=== PATIENT | male | born 1970 ===

== ENCOUNTER 2017-01-22 09:50 | Emergency (ER) | payer MEDICAID ==
[2017-01-22 10:13] VITALS: BP 165/101; RESP 16; TEMP 97; O2SAT 98
[2017-01-22 10:24] VITALS: PULSE 88
--- NOTE | 2017-01-22 10:25 | ED PDOC ---
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 There everything checked out ok, but he had high blood pressure. He left and never followed up with anyone for it. Here now as he wants a letter for clearance and bp management. Has no chest pain, dyspnea, weakness, numbness, tingles, headaches, or any symptoms. No vision changes. Has no doctor. Monitoring pressure at home and is at 150s systolic or 100 lower number. Past Medical History Reviewed: Nursing Documentation, Vital Signs Vital Signs: Last Vital Signs Temp 97.0 F L 01/22/17 10:10 Pulse 94 H 01/22/17 10:10 Resp 16 01/22/17 10:10 BP 165/101 H 01/22/17 10:10 Pulse Ox 98 01/22/17 10:10 - Medical History PMH: HTN - Surgical History Surgical History: No Surg Hx - Family History Family History: States: Unknown Family Hx - Social History Alcohol: None Drugs: Denies - Immunization History Hx Tetanus Toxoid Vaccination: No Hx Influenza Vaccination: No Hx Pneumococcal Vaccination: No - Allergies Allergies/Adverse Reactions: Allergies Allergy/AdvReac Type Severity Reaction Status Date / Time No Known Allergies Allergy Verified 10/19/15 10:08 Review of Systems ROS Statement: Except As Marked, All Systems Reviewed And Found Negative Physical Exam - Reviewed Nursing Documentation Reviewed: Yes Vital Signs Reviewed: Yes - Physical Exam Appears: Positive for: Well, Non-toxic, No Acute Distress Head Exam: Positive for: ATRAUMATIC, NORMAL INSPECTION, NORMOCEPHALIC Skin: Positive for: Normal Color, Warm, DRY Eye Exam: Positive for: EOMI, Normal appearance, PERRL ENT: Positive for: Normal ENT Inspection Neck: Positive for: Normal, Painless ROM Cardiovascular/Chest: Positive for: Regular Rate, Rhythm. Negative for: Edema Respiratory: Positive for: CNT, Normal Breath Sounds Gastrointestinal/Abdominal: Positive for: Normal Exam, Bowel Sounds, Soft. Negative for: Tenderness Back: Positive for: Normal Inspection. Negative for: L CVA Tenderness, R CVA Tenderness Extremity: Positive for: Normal ROM. 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 Negative for: Motor/Sensory Deficits - ECG O2 Sat by Pulse Oximetry: 98 Pulse Ox Interpretation: Normal - Progress ED Course And Treament: Spoke with [facility] resident, Ana Maria. She will follow up with pt. and help with appointment for tomorrow. Pt. aware. Unclear how long his bp has been up. Not taking care of himself for 2 years. Pt. to follow up and call clinic [phone] and get appointment. He can also go as walk-in. Has no symptoms. Will not tx bp at this time as pt. is asymptomatic and possibly chronically at this bp. AAOx3. Ambulated with no issues. Disposition - Clinical Impression Clinical Impression: Hypertension - Patient ED Disposition Is Patient to be Admitted: No Counseled Patient/Family Regarding: Diagnosis, Need For Followup - Disposition Referrals: [facility] [Outside] - 01/23/17 Disposition: Routine/Home Disposition Time: 10:30 Condition: STABLE Additional Instructions: Call the clinic tomorrow [phone] and make an appointment for the same day. They have walk-in and same day appointments available. Make sure to get seen tomorrow. Return if not better in 3 days. Instructions: Hypertension (ED)
== END 2017-01-22 10:52 | disposition home or self-care (01) ==
LOC: H.ER 09:50
DX: I10 Essential (primary) hypertension (principal)

== ENCOUNTER 2017-02-02 11:17 | Emergency (ER) | payer MEDICAID ==
[2017-02-02 11:32] VITALS: TEMP 98.4; O2SAT 97
--- NOTE | 2017-02-02 11:51 | ED PDOC ---
HPI: Hypertension/Hypotension Chief Complaint (Nursing): High Blood Pressure Past Medical History Vital Signs: Last Vital Signs Temp 98.4 F 02/02/17 11:31 Pulse 83 02/02/17 11:31 Resp 20 02/02/17 11:31 BP 164/102 H 02/02/17 11:31 Pulse Ox 97 02/02/17 11:31 - Medical History PMH: HTN - Family History Family History: States: Unknown Family Hx - Immunization History Hx Tetanus Toxoid Vaccination: No Hx Influenza Vaccination: No Hx Pneumococcal Vaccination: No - Allergies Allergies/Adverse Reactions: Allergies Allergy/AdvReac Type Severity Reaction Status Date / Time No Known Allergies Allergy Verified 10/19/15 10:08 - ECG O2 Sat by Pulse Oximetry: 97
[2017-02-02 11:59] VITALS: PULSE 88
--- NOTE | 2017-02-02 12:09 | ED PDOC ---
HPI: General Adult Time Seen by Provider: 02/02/17 12:02 Chief Complaint (Nursing): High Blood Pressure Chief Complaint (Provider): sent by clinic, elevate BP History Per: Patient Additional Complaint(s): Patient was just seen at [facility] and was sent to ED for evaluation of elevated blood pressure. Patient states he has had elevated blood pressure for the past month but is not currently taking any medications. He does not have a primary doctor. He denies any chest pain, shortness of breath , dizziness, headache, vision changes upon arrival. Patient offers no acute medical complaints but states that he is under a great deal of stress. He denies suicidal or homicidal ideation. Past Medical History Reviewed: Historical Data, Nursing Documentation, Vital Signs Vital Signs: Last Vital Signs Temp 98.4 F 02/02/17 11:31 Pulse 88 02/02/17 14:09 Resp 18 02/02/17 14:09 BP 141/87 02/02/17 14:09 Pulse Ox 97 02/02/17 14:25 - Medical History PMH: HTN (not on meds) - Surgical History Other surgeries: Left ankle surgery - Family History Family History: States: No Known Family Hx - Living Arrangements Living Arrangements: With Family - Social History Current smoker - smoking cessation education provided: Yes (1 pack per week) Alcohol: None Drugs: Denies - Home Medications Home Medications: Ambulatory Orders Medication Instructions Recorded Hydrochlorothiazide [Microzide] 12.5 mg PO DAILY #30 cap 02/02/17 - Allergies Allergies/Adverse Reactions: Allergies Allergy/AdvReac Type Severity Reaction Status Date / Time No Known Allergies Allergy Verified 10/19/15 10:08 Review of Systems ROS Statement: Except As Marked, All Systems Reviewed And Found Negative Constitutional: Negative for: Fever Eyes: Negative for: Vision Change Cardiovascular: Negative for: Chest Pain Respiratory: Negative for: Cough Gastrointestinal: Negative for: Nausea, Vomiting Neurological: Negative for: Headache, Dizziness Physical Exam - Reviewed Nursing Documentation Reviewed: Yes Vital Signs Reviewed: Yes - Physical Exam Appears: Positive for: Well Head Exam: Positive for: ATRAUMATIC, NORMAL INSPECTION Skin: Negative for: Rash Eye Exam: Positive for: Normal appearance, EOMI, PERRL Cardiovascular/Chest: Positive for: Regular Rate, Rhythm Respiratory: Positive for: Normal Breath Sounds Extremity: Negative for: Pedal Edema Neurologic/Psych: Positive for: Alert, Oriented - Laboratory Results Result Diagrams: 02/02/17 12:45 02/02/17 12:45 - ECG Interpretation Of ECG: NSR 75 bpm, no acute finding, reviewed by PA and ED attending O2 Sat by Pulse Oximetry: 97 Pulse Ox Interpretation: Normal Medical Decision Making Medical Decision Makin46 year old male with hypertension. Plan: EKG CXR CBC CMP Trop Lipid Panel HA1C UA Dr. Galarza, family practice resident came to bedside to see patient in ED. Labs were ordered as per Dr. Donnelly. Patient will be discharged with prescription for hydrochlorothiazide 12.5 mg tablet daily and has follow-up next week in clinic with Dr. Galarza. Disposition - Clinical Impression Clinical Impression: Hypertension - Patient ED Disposition Is Patient to be Admitted: No Counseled Patient/Family Regarding: Studies Performed, Diagnosis, Need For Followup, Rx Given - Disposition Referrals: [facility] [Outside] Disposition: Routine/Home Disposition Time: 13:55 Condition: STABLE Additional Instructions: Take prescription medications as directed. Follow up next week as scheduled in clinic. Prescriptions: Hydrochlorothiazide [Microzide] 12.5 mg PO DAILY #30 cap Instructions: Hypertension (ED) Results - Lab Results Lab Results: 02/02/17 02/02/17 02/02/17 12:45 12:45 12:45 WBC 4.9 RBC 5.12 Hgb 16.0 Hct 47.4 MCV 92.6 MCH 31.4 H MCHC 33.9 RDW 13.2 Plt Count 205 MPV 8.2 Neut % (Auto) 53.2 Lymph % (Auto) 32.6 [place] % (Auto) 11.9 H Eos % (Auto) 1.6 Baso % (Auto) 0.7 Neut # 2.6 Lymph # 1.6 [place] # 0.6 Eos # 0.1 Baso # 0.0 Sodium 141 Potassium 4.1 Chloride 104 Carbon Dioxide 26 Anion Gap 15 BUN 16 Creatinine 1.2 Est GFR ( Amer) > 60 Est GFR (Non-Af Amer) > 60 Random Glucose 102 Calcium 9.3 Total Bilirubin 0.5 AST 32 ALT 40 Alkaline Phosphatase 69 Troponin I < 0.0120 Total Protein 7.5 Albumin 4.3 Globulin 3.2 Albumin/Globulin Ratio 1.3 Triglycerides 282 H Cholesterol 161 LDL Cholesterol Direct 78 HDL Cholesterol 47 Urine Color Yellow Urine Clarity Clear Urine pH 6.0 Ur Specific [place] 1.016 Urine Protein Negative Urine Glucose (UA) Neg Urine Ketones Negative Urine Blood Negative Urine Nitrate Negative Urine Bilirubin Negative Urine Urobilinogen 0.2-1.0 Ur Leukocyte Esterase Neg Urine RBC (Auto) 4 H Urine Microscopic WBC < 1 Ur Squamous Epith Cells < 1 Urine Bacteria Rare
[2017-02-02] MEDS ORDERED: Sodium Chloride 0.9% 1,000 ML IV STA (12:16)
[2017-02-02 13:12] LABS: BASO % 0.7 % (0.0-2.0); EOS # 0.1 K/uL (0.0-0.7); EOS % 1.6 % (0.0-4.0); HEMATOCRIT 47.4 % (35.0-51.0); LYMPH # 1.6 K/uL (1.0-4.3); LYMPH % 32.6 % (20.0-40.0); MEAN CELL VOLUME 92.6 fl (80.0-94.0); MEAN CORPUSCULAR HEMOGLOBIN 31.4 pg (27.0-31.0); MEAN CORPUSCULAR HGB CONC 33.9 g/dL (33.0-37.0); MEAN PLATELET VOLUME 8.2 fl (7.2-11.7); MONO # 0.6 K/uL (0.0-0.8); MONO % 11.9 % (0.0-10.0); NEUT # 2.6 K/uL (1.8-7.0); NEUT % 53.2 % (50.0-75.0); NRBC % 0.4 % (0.0-0.0); RED CELL DISTRIBUTION WIDTH 13.2 % (11.5-14.5); WHITE BLOOD COUNT 4.9 K/uL (4.8-10.8)
[2017-02-02 13:23] LABS: RBC URINE 4 /hpf (0-3); URINE BACTERIA RARE (<OCC); URINE BILIRUBIN NEGATIVE (NEGATIVE); URINE BLOOD NEGATIVE (NEGATIVE); URINE COLOR YELLOW (YELLOW); URINE GLUCOSE (UA) NEG (Normal); URINE KETONE NEGATIVE (NEGATIVE); URINE LEUKOCYTE ESTERASE NEG Leu/uL (Negative); URINE PROTEIN NEGATIVE (NEGATIVE); URINE UROBILINOGEN 0.2-1.0 mg/dL (0.2-1.0); WBC URINE < 1 /hpf (0-5)
[2017-02-02 13:30] LABS: CHLORIDE 104 mmol/L (98-107); POTASSIUM 4.1 MMOL/L (3.6-5.0); SODIUM 141 mmol/l (132-148)
[2017-02-02 13:32] LABS: AST/SGOT 32 U/L (17-59); BILIRUBIN,TOTAL 0.5 mg/dl (0.2-1.3); CARBON DIOXIDE 26 mmol/L (22-30); CHOLESTEROL 161 mg/dL (0-199); GFR AFRICAN-AMERICAN > 60; TOTAL PROTEIN 7.5 G/DL (6.3-8.2)
[2017-02-02 13:33] LABS: ALKALINE PHOSPHATASE 69 U/L (38-126); ALT/SGPT 40 U/L (21-72); BLOOD UREA NITROGEN 16 mg/dl (9-20); CALCIUM 9.3 mg/dL (8.4-10.2); GLUCOSE,RANDOM 102 mg/dL (75-110)
[2017-02-02 13:54] LABS: ALB/GLOB RATIO 1.3 (1.0-2.1)
[2017-02-02 14:10] VITALS: BP 141/87; RESP 18
--- NOTE | 2017-02-02 14:12 | RAD ---
HISTORY: Medical clearance. Portable upright study 12:34. COMPARISON: No prior. FINDINGS: LUNGS: No active pulmonary disease. PLEURA: No significant pleural effusion identified, no pneumothorax apparent. CARDIOVASCULAR: No radiographic findings to suggest acute or significant cardiovascular disease. OSSEOUS STRUCTURES: No significant abnormalities. VISUALIZED UPPER ABDOMEN: Normal. OTHER FINDINGS: None. IMPRESSION: No active disease.
--- NOTE | 2017-02-03 08:41 | CARD ---
APPROVED REPORT EKG Measurement Heart [id number] <Conclusion> Normal sinus rhythm Normal ECG
== END 2017-02-02 14:09 | disposition home or self-care (01) ==
LOC: H.ER 11:17
DX: I10 Essential (primary) hypertension (principal); F17.200 Nicotine dependence, unspecified, uncomplicated

== ENCOUNTER 2018-01-14 08:40 | Emergency (ER) | payer MEDICAID, OTHER ==
[2018-01-14 08:54] VITALS: BMI 33.5
[2018-01-14 08:56] VITALS: RESP 20; O2SAT 98
--- NOTE | 2018-01-14 09:49 | ED PDOC ---
HPI: CCC, URI, Sore Throat Time Seen by Provider: 01/14/18 09:10 Chief Complaint (Nursing): ENT Problem Chief Complaint (Provider): Nasal discharge History Per: Patient History/Exam Limitations: no limitations Additional Complaint(s): Pt reports yellow mucus from R nares X 1.5 weeks, fever and facial pain that has since resolved. Denies sore throat, cough, SOB. Past Medical History Reviewed: Nursing Documentation, Vital Signs Vital Signs: Last Vital Signs Temp 100 F H 01/14/18 08:54 Pulse 96 H 01/14/18 08:54 Resp 20 01/14/18 08:54 BP 172/73 H 01/14/18 08:54 Pulse Ox 98 01/14/18 08:54 - Medical History PMH: No Chronic Diseases, HTN (not on meds) - Family History Family History: States: Unknown Family Hx - Social History Current smoker - smoking cessation education provided: No Alcohol: None - Immunization History Hx Tetanus Toxoid Vaccination: No Hx Influenza Vaccination: No Hx Pneumococcal Vaccination: No - Home Medications Home Medications: Ambulatory Orders Medication Instructions Recorded Amoxicillin/Clavulanate [Augmentin 1 tab PO BID #10 tab 01/14/18 875 MG-125 MG] - Allergies Allergies/Adverse Reactions: Allergies Allergy/AdvReac Type Severity Reaction Status Date / Time No Known Allergies Allergy Verified 01/14/18 09:02 Review of Systems Constitutional: Negative for: Fever, Chills ENT: Positive for: Nose Discharge, Nose Congestion. Negative for: Nose Pain, Mouth Pain, Mouth Swelling, Throat Pain, Throat Swelling Cardiovascular: Negative for: Chest Pain, Palpitations Respiratory: Negative for: Cough, Shortness of Breath Skin: Negative for: Rash, Lesions Neurological: Negative for: Headache, Dizziness Physical Exam - Reviewed Nursing Documentation Reviewed: Yes Vital Signs Reviewed: Yes - Physical Exam Appears: Positive for: Well, No Acute Distress Head Exam: Positive for: ATRAUMATIC, NORMAL INSPECTION Skin: Positive for: Normal Color, Warm, Dry Eye Exam: Positive for: Normal appearance, EOMI, PERRL ENT: Positive for: Pharynx Is (+ Postnasal drip), Sinus Pain/Drainage (R), Nasal Congestion. Negative for: Pharyngeal Erythema, Tonsillar Exudate, Tonsillar Swelling Neck: Positive for: Normal, Painless ROM, Supple Cardiovascular/Chest: Positive for: Regular Rate, Rhythm Respiratory: Positive for: Normal Breath Sounds. Negative for: Rales, Rhonchi, Wheezing Neurologic/Psych: Positive for: Alert, Oriented - ECG O2 Sat by Pulse Oximetry: 98 Medical Decision Making Medical Decision Makin yo with purulent R nasal discharge. - Rx Augmentin Disposition - Clinical Impression Clinical Impression: Sinusitis - Patient ED Disposition Is Patient to be Admitted: No - Disposition Referrals: [facility] [Outside] Disposition: Routine/Home Disposition Time: 09:47 Condition: STABLE Prescriptions: Amoxicillin/Clavulanate [Augmentin 875 MG-125 MG] 1 tab PO BID #10 tab Instructions: Sinusitis in Adults
[2018-01-14 10:04] VITALS: BP 152/79; PULSE 92; TEMP 99.6
== END 2018-01-14 10:04 | disposition home or self-care (01) ==
LOC: H.ER 08:40
DX: J32.9 Chronic sinusitis, unspecified (principal)